=== PATIENT | male | born 1935 | race Caucasian/White ===

== ENCOUNTER → 2019-10-25 | Outpatient (CLI) | payer MEDICARE, OTHER ==
[~2019-10-25] MED LIST: ADULT LOW DOSE81 MG PO; ASPIRIN325 PO; BETA CAROT10000 UNIT PO; NAC600 MG PO; NITROSTAT0.4 MG SL; PLAVIX 75 MG TA75 MG PO; TOPROL XL25 MG PO; ZOCOR40 MG PO
--- NOTE | 2019-10-25 17:17 | CARDNUC ---
[place] [address] CARDIAC NUCLEAR IMAGING REPORT Name: RASHAAD LEPE Room: [facility]#: [id number] Admission: 10/25/19 Attend Phys: Jennifer Martin Discharge: Date of : 37 Date of Service: 10/25/19 1716 Report #: [id number] THIS REPORT FOR: cc: Mason Dumont Bradley L. DO Liston, Michael J. MD MERGED WITH [facility] ~ APPROVED REPORT Imaging Protocol: Stress Tc-99m/Rest Tc-99m 1 day Study performed: 10/25/2019 09:55:46 Indication: Dyspnea Patient Location: Out-Patient Stress Tech: Edyta Norris Stress Nurse: Sivan Evans RN NM Tech:MOUNIKA Jones Ht: 6 ft 2 in Wt: 245 lbs BSA: 2.37 m2 HR: 70 bpm BP: 104/86 mmHg BMI: 31.45 Medical History Medical History: CAD Medications: Aspirin, Metoprolol, Simvastatin Allergies: Guaifenesin-Codeine, Ciprofloxacin, Enoxacin, Grepafloxacin, Levofloxacin, Lomefloxacin, Norfloxacin, Ofloxacin, Sparfloxacin, Tramadol Cardiac Risk Factors: Age, Hyperlipidemia, HTN, Tobacco History (Former) Previous Cardiac Procedures: PCI Resting Data Rest SPECT myocardial perfusion imaging was performed in supine position 30 minutes following the intravenous injection of 10.0 mCi of Tc-99m Sestamibi. Time of rest injection: 08:10 The images were gated to evaluate regional wall motion and calculate left ventricular ejection fraction. Administration Route: IV Administration Site: Right AC Pharmacologic Stress Pharmacologic stress test was performed by injecting Regadenoson 0.4 mg IV push over 10-15 seconds immediately [place] [address] CARDIAC NUCLEAR IMAGING REPORT Name: RASHAAD LEPE [facility] [id number] Admission: 10/25/19 Attend Phys: Jennifer Martin Discharge: Date of : 37 Date of Service: 10/25/19 1716 Report #: [id number] injection of 31.3 mCi of Tc-99m Sestamibi. Time of stress injection: 09:50 Administration Route: IV Administration Site: Right AC Heart Rate at time of stress injection: 96 bpm. Gated Stress SPECT was performed 40 minutes after stress injection. The images were gated to evaluate regional wall motion and calculate left ventricular ejection fraction. Prone imaging was performed. Stress Test Details HR Max Heart Rate (APMHR): 137 bpm Resting HR: 70 bpm Target HR (85% APMHR): 116 bpm Max HR Achieved: 96 bpm % of APMHR: 70 Recovery HR: 82 bpm HR response to stress: Normal HR response to stress BP Resting BP: 104/86 mmHg Max BP: 148/72 mmHg Recovery BP: 145/88 mmHg BP response to stress: Normal blood pressure response to stress. ECG Resting ECG: Sinus Rhythm Stress ECG: Sinus Rhythm ST Change: None Arrhythmia: None Recovery ECG: Sinus Rhythm Recovery ST Change: None Recovery Arrhythmia: None Clinical Reason for Termination: Completed protocol Stress Symptoms: None The patient tolerated Lexiscan infusion without significant cardiac symptom. Stress ECG Conclusion The baseline twelve-lead EKG shows sinus rhythm without significant ST segment or T wave abnormality. EKGs obtained during and post Lexiscan infusion show sinus rhythm with no significant ST segment or T wave changes when compared to baseline. [place] [address] CARDIAC NUCLEAR IMAGING REPORT Name: RASHAAD LEPE Room: [facility]#: [id number] Admission: 10/25/19 Attend Phys: Jennifer Martin Discharge: Date of : 37 Date of Service: 10/25/19 1716 Report #: [id number] stress-induced arrhythmias. Study Quality Study: Good Artifact: Mild Diaphragmatic artifact Study Data At rest, the left ventricular ejection fraction was 51%.. Post stress, the left ventricular ejection was 57%.. TID = 0.99. Perfusion Perfusion studies obtained in the supine position at rest and post Lexiscan stress show mild photopenia in the inferior wall that resolves completely with post-rest prone imaging suggesting diaphragmatic attenuation artifact. No other significant fixed or reversible defects are identified. Wall Motion Normal left ventricular wall motion. Nuclear Conclusion ECG Findings: negative for ischemia Clinical Findings: negative for ischemia Nuclear Findings: negative for ischemia Exercise Capacity: not assessed Left Ventricular Function: normal Risk Study: low Perfusion study show no defect to suggest infarct or ischemia. Left ventricular systolic function appears normal on gated studies. This is a low risk study. <Conclusion> The baseline twelve-lead EKG shows sinus rhythm without significant ST segment or T wave abnormality. EKGs obtained during and post Lexiscan infusion show sinus rhythm with no significant ST segment or T wave changes when compared to baseline. There were no stress-induced arrhythmias. <ELECTRONICALLY SIGNED> By: Contreras Mcmillan MD, FACC 10/25/19 1716 171 [id number] Contreras Mcmillan MD, FACC /INF
--- NOTE | 2019-10-25 17:39 | EKG ---
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
== END ==
LOC: M.NUC 07:43
PROVIDERS: ATTEND Internal Medicine
DX: I25.119 Atherosclerotic heart disease of native coronary artery with unspecified angina pectoris (principal); E78.00 Pure hypercholesterolemia, unspecified; I10 Essential (primary) hypertension; I49.9 Cardiac arrhythmia, unspecified; Z95.5 Presence of coronary angioplasty implant and graft

== ENCOUNTER → 2020-05-16 | Outpatient (CLI) | payer MEDICARE, OTHER | LOC: M.ULTRA 14:23 | PROVIDERS: ATTEND Internal Medicine | DX: I65.22 Occlusion and stenosis of left carotid artery (principal) ==